=== PATIENT | female | born 1985 | race African-American/Black ===

== ENCOUNTER 2021-03-27 02:26 | Emergency (ER) | payer OTHER ==
[~2021-03-27] VITALS: Ht 172.7 cm; Wt 133.4 kg
[2021-03-27] MEDS ORDERED: KETOROLAC TROMETHAMINE 30 MG/ML VIAL IV STA (03:13)
[2021-03-27] MEDS ORDERED: KETOROLAC TROMETHAMINE 30 MG/ML VIAL ONE (03:45)
[2021-03-27] MEDS ORDERED: NAPROSYN500 MG PO (04:09)
[2021-03-27 04:40] VITALS: BP 140/86
== END 2021-03-27 04:40 | disposition home or self-care (01) ==
LOC: FSED 03:14
DX: R10.31 Right lower quadrant pain (principal); D25.9 Leiomyoma of uterus, unspecified
CPT/HCPCS: 74176; 80053; 81003; 81025; 85025; 96374; 99284; J1885